=== PATIENT | female | born 1990 | race African-American/Black ===

== ENCOUNTER 2020-04-18 17:33 | Observation (INO) | payer SELFPAY ==
[2020-04-18] MEDS ORDERED: PREN-96 PO (18:01)
[2020-04-18 19:33] LABS: Urine Bacteria FEW /hpf (None Seen); Urine Blood TRACE /uL (Negative); Urine Mucus FEW (None Seen); Urine Specific Gravity 1.025 (1.001-1.035); Urine WBC 1 /hpf (0 - 5)
[2020-04-18 19:47] LABS: Alcohol, Urine < 3.0 mg/dL (0-10); Amphetamine Screen, Urine NEGATIVE (NEGATIVE); Barbiturate Scree,Urine NEGATIVE (NEGATIVE); Benzodiazephine Screen, Urine NEGATIVE (NEGATIVE); Cannabinoid Screen, Urine NEGATIVE (NEGATIVE); Cocaine Screen, Urine NEGATIVE (NEGATIVE); Opiate Scree,Urine NEGATIVE (NEGATIVE); Phencyclidine Screen, Urine NEGATIVE (NEGATIVE)
[2020-04-18 20:04] LABS: Basophils # (auto) 0 10 ^3/uL (0-0.2); Basophils % (auto) 0.3 % (0.0-2.0); Eosinophils # (auto) 0.1 10 ^3/uL (0-0.8); Eosinophils % (auto) 1.4 % (0.0-7.0); Hematocrit 28.4 % (36.0-46.0); Hemoglobin 9.3 g/dL (12.2-16.2); Lymphocytes # (auto) 1.5 10 ^3/uL (0.4-5.4); Lymphocytes % (auto) 17.4 % (10.0-50.0); Mean Corpuscular Hemoglobin 28.5 pg (28.0-32.0); Mean Corpuscular Hgb Conc. 32.9 g/dL (32.0-36.0); Mean Corpuscular Volume 86.7 fL (80.0-100.0); Monocytes # (auto) 0.8 10 ^3/uL (0-1.3); Monocytes % (auto) 9.8 % (0.0-12.0); Neutrophils # (auto) 6.1 10 ^3/uL (1.6-8.6); Neutrophils % (auto) 71.1 % (37.0-80.0); Nucleated Red Blood Cells % 0.1 %; Platelet Count (auto) 437 10^3/uL (140-450); Red Blood Cells 3.27 10^6/uL (4.0-5.20); Red Cell Distribution Width 13.9 % (11.8-14.3); White Blood Cell 8.6 10^3/uL (4.4-10.8)
[2020-04-18 20:19] LABS: INR 0.97 (0.9-1.15); Partial Thromboplastin Time 25.6 sec (23.64-32.05)
[2020-04-18 20:24] LABS: Albumin 2.3 g/dL (3.4-5.0); Calcium 8.7 mg/dL (8.5-10.1)
[2020-04-18 20:28] LABS: BUN/Creatinine Ratio 10.9; Bilirubin, Total 0.2 mg/dL (0.2-1.0); Total Protein 6.8 g/dL (6.4-8.2)
== END 2020-04-18 20:00 | disposition home or self-care (01) | DRG 833 ==
LOC: LDRP 17:33 → EDBD 17:33
PROVIDERS: ADMIT Specialist; ATTEND Specialist
DX: O62.9 Abnormality of forces of labor, unspecified (principal); Z3A.39 39 weeks gestation of pregnancy
CPT/HCPCS: 36415; 59025; 76805; 80053; 80307; 81001; 81002; 84112; 84550; 85025; 85610; 85730; 86592; 86703; 86762; 86850; 86900; 86901; 87081; 87340; G0378

== ENCOUNTER 2020-04-22 21:27 | Inpatient (IN) | payer SELFPAY ==
[~2020-04-22] VITALS: Ht 165.1 cm; Wt 113.4 kg
[~2020-04-22 21:27] MED LIST: PREN-96 PO
[2020-04-23 00:15] LABS: Basophils # (auto) 0 10 ^3/uL (0-0.2); Basophils % (auto) 0.2 % (0.0-2.0); Eosinophils # (auto) 0.1 10 ^3/uL (0-0.8); Eosinophils % (auto) 1.3 % (0.0-7.0); Hematocrit 32.1 % (36.0-46.0); Hemoglobin 10.5 g/dL (12.2-16.2); Lymphocytes # (auto) 2.1 10 ^3/uL (0.4-5.4); Lymphocytes % (auto) 20.4 % (10.0-50.0); Mean Corpuscular Hemoglobin 28.6 pg (28.0-32.0); Mean Corpuscular Hgb Conc. 32.9 g/dL (32.0-36.0); Monocytes # (auto) 0.9 10 ^3/uL (0-1.3); Monocytes % (auto) 8.9 % (0.0-12.0); Neutrophils % (auto) 69.2 % (37.0-80.0); Nucleated Red Blood Cells % 0.2 %; Platelet Count (auto) 531 10^3/uL (140-450); Red Blood Cells 3.69 10^6/uL (4.0-5.20); Red Cell Distribution Width 14.2 % (11.8-14.3); White Blood Cell 10.1 10^3/uL (4.4-10.8)
[2020-04-23 00:21] LABS: Urine Bacteria FEW /hpf (None Seen); Urine Blood 1+ /uL (Negative); Urine Mucus FEW (None Seen); Urine Specific Gravity 1.027 (1.001-1.035); Urine WBC 1 /hpf (0 - 5)
[2020-04-23 00:35] LABS: Albumin 2.7 g/dL (3.4-5.0); BUN/Creatinine Ratio 13.3; Calcium 8.9 mg/dL (8.5-10.1)
[2020-04-23 00:38] LABS: Bilirubin, Total 0.3 mg/dL (0.2-1.0); Total Protein 7.6 g/dL (6.4-8.2)
[2020-04-23 01:08] LABS: Uric Acid 3.4 mg/dL (2.6-6.0)
[2020-04-23] MEDS ORDERED: ACETAMINOPHEN 325 MG TAB PO ONE (01:15)
[2020-04-23] MEDS ORDERED: LACT. RINGERS/OXYTOCIN 20UNITS 1,000 ML IV SCH (02:43)
[2020-04-23] MEDS ORDERED: PHISODERM TOP SOLN 240ML BTL TOP PRN (02:45)
[2020-04-23] MEDS ORDERED: LIDOCAINE 2%HCL (LOCAL ANESTH.) INJ 20ML MDV ID ONE (02:45)
[2020-04-23] MEDS ORDERED: WITCH HAZEL-GLYCERIN PAD TOP PRN (02:45)
[2020-04-23] MEDS ORDERED: METHYLERGONOVINE MALEATE 0.2 MG/ML AMP IM PRN (02:45)
[2020-04-23] MEDS ORDERED: DERMOPLAST 60ML BOTTLE TOP PRN (02:45)
[2020-04-23] MEDS: LACTATED RINGER'S 1,000 ML IV SCH ×3 (03:06→06:06)
[2020-04-23] MEDS ORDERED: PROMETHAZINE HCL 25 MG/ML 1ML IM ONE (03:15)
[2020-04-23] MEDS ORDERED: BUTORPHANOL TARTRATE 2 MG/1 ML VIAL IV PRN (03:15)
[2020-04-23 03:28] LABS: Alcohol, Urine < 3.0 mg/dL (0-10); Amphetamine Screen, Urine NEGATIVE (NEGATIVE); Barbiturate Scree,Urine NEGATIVE (NEGATIVE); Benzodiazephine Screen, Urine NEGATIVE (NEGATIVE); Cannabinoid Screen, Urine NEGATIVE (NEGATIVE); Cocaine Screen, Urine NEGATIVE (NEGATIVE); Opiate Scree,Urine NEGATIVE (NEGATIVE); Phencyclidine Screen, Urine NEGATIVE (NEGATIVE)
[2020-04-23 04:06] LABS: INR 0.98 (0.9-1.15); Partial Thromboplastin Time 27.4 sec (23.64-32.05)
[2020-04-23] MEDS ORDERED: LACTATED RINGER'S 1,000 ML IV ONE (04:12)
[2020-04-23] MEDS ORDERED: NALOXONE HCL 0.4 MG/ML VIAL IV ONE (04:15)
[2020-04-23] MEDS ORDERED: fentaNYL 200mCg/100ml W ROPIVA 100 ML EPI SCH (04:15)
[2020-04-23] MEDS ORDERED: ePHEDrine SULFATE 50 MG/ML AMP IV ONE (04:15)
[2020-04-23] MEDS ORDERED: ACETAMINOPHEN 325 MG TAB PO PRN (09:30)
--- NOTE | 2020-04-23 11:46 | NUR ---
Ambulation: Patient OOB with standby assistance by RN. Patient ambulated to bathroom with steady gait. Patient able to void 800ml without difficulty. [facility] teaching provided with returned demonstration by patient. Clean gown provided and bed linen changed. Patient ambulated back to bed with steady gait and no distress noted.
--- NOTE | 2020-04-23 12:30 | NUR ---
Received SBAR from Caroline Wilburn.
[2020-04-23] MEDS: IBUPROFEN 600 MG TAB PO PRN ×2 (12:50→18:50)
--- NOTE | 2020-04-23 12:50 | NUR ---
Board updated. Updated on plan of care. Verbalized understanding. C/O pain of 05/17 in abdomen. See mar.
[2020-04-23 15:43] VITALS: BP 143/68
--- NOTE | 2020-04-23 16:27 | NUR ---
Assessment SS consult for no care PNC. Patient stated she lived in the [facility] of [place] and recently moved to [place] during the COVID -19 Pandemic and was unable to change her health plan to the [facility]. Patient informed me she was taking her parental in the beginning of her when her [employer] was active but stop taking them when she moved. Informed patient I will refer her to [place] will will assist with [employer]. Per patient Austni came in this morning and ask a few questions regarding income. Pt resides with her significant other Min and will have assistance with baby upon discharge. Pt has all supplies as well as car seat for baby and will be bottle and . Pt does not have health insurance and [facility] has been contact regarding patient. Pt has transportation home upon discharge.
[2020-04-23 19:00] VITALS: BP 121/63
--- NOTE | 2020-04-23 19:14 | NUR ---
mother requested bottle for . rn brought in bottle. mother attempted to feed baby bottle, baby wouldn't take it. mother attempted to latch. mother stated that went right back to sleep. rn initiated feeding with bottle. baby drinking now while mother is holding infant. mother of baby is really fatigued.
--- NOTE | 2020-04-23 21:06 | NUR ---
FATHER OF BABY AT BEDSIDE. STATING HE WILL BE SPENDING THE NIGHT AND WILL BE WAKING UP WITH INFANT.
[2020-04-23 23:00] VITALS: BP 123/71
--- NOTE | 2020-04-23 23:06 | NUR ---
MOTHER BONDING WITH . FEEDING WITH HELP OF RN. MOTHER CHANGED BABYS CLOTHING AND IS HOLDING BABY
[2020-04-24] MEDS: IBUPROFEN 600 MG TAB PO PRN ×2 (02:30→07:57)
[2020-04-24 03:00] VITALS: BP 121/71
[2020-04-24 06:30] VITALS: BP 128/66
--- NOTE | 2020-04-24 10:04 | NUR ---
Regarding social service consult for neglect of infant not bonding. When speaking to patient yesterday 04/23/2020 regarding no care. Patient was bonding with baby and at the time of discussing no care. TUNG Childs advised me patient has been bonding with baby since last night and has been feeding baby every 3 hours. Enter room this morning and patient was significant other Min was at bedside bonding with baby. Informed patient Lizeth Mensah has given bedside nurse information to provide her after discharge on how to obtain service for baby with a low cost while [place] assist with [employer]. Patient verbalize understanding. Informed TUNG Childs patient and baby father where both bonding with baby.
[2020-04-24 11:30] VITALS: BP 107/59
--- NOTE | 2020-04-24 11:35 | NUR ---
Discharge: Discharge instructions given as ordered. Pt encouraged to follow up with [facility] as instructed. All questions and concerns addressed. Patient verbalized understanding. Medication reconciliation completed and copy given to patient. All required/requested vaccines given and copies of vaccinations given to patient. Patient encouraged to prepare to depart unit.
--- NOTE | 2020-04-24 12:24 | NUR ---
Discharge: Patient taken to vehicle via wheelchair with all personal belongings, accompanied by staff and family member. No distress noted at time of departure, no adverse changes in status since initial assessment.
== END 2020-04-24 12:24 | disposition home or self-care (01) | DRG 807 ==
LOC: LDRP 21:27 → OBSVTOIN 04-23 02:38 → NUR 04-23 02:46 → LDRP 04-23 04:02
PROVIDERS: ADMIT Specialist; ATTEND Specialist
PROC: 10E0XZZ Delivery of Products of Conception, External Approach (ICD-10-PCS; principal; 2020-04-23)
PROC: 10907ZC Drainage of Amniotic Fluid, Therapeutic from Products of Conception, Via Natural or Artificial Opening (ICD-10-PCS; 2020-04-23)
PROC: 3E0R3BZ Introduction of Anesthetic Agent into Spinal Canal, Percutaneous Approach (ICD-10-PCS; 2020-04-23)
PROC: 00HU33Z Insertion of Infusion Device into Spinal Canal, Percutaneous Approach (ICD-10-PCS; 2020-04-23)
DX: O80 Encounter for full-term uncomplicated delivery (principal); Z37.0 Single live birth; Z3A.40 40 weeks gestation of pregnancy
CPT/HCPCS: 36415; 59025; 59409; 62282; 80053; 80307; 81001; 81002; 84112; 84550; 85025; 85379; 85384; 85610; 85730; 86592; 86850; 86900; 86901; 96365; 96366; 96372; 96374; G0378; J2590

== ENCOUNTER → 2020-04-30 | Emergency (ER) | payer SELFPAY ==
[~2020-04-30] VITALS: Ht 165.1 cm; Wt 113.4 kg
[~2020-04-30] MED LIST changes: +ACETAMINOPHEN 325 MG TAB PO ONE
[2020-04-30 22:02] LABS: Basophils # (auto) 0 10 ^3/uL (0-0.2); Basophils % (auto) 0.4 % (0.0-2.0); Eosinophils # (auto) 0.2 10 ^3/uL (0-0.8); Hemoglobin 10.4 g/dL (12.2-16.2); Monocytes # (auto) 0.5 10 ^3/uL (0-1.3)
[2020-04-30 22:04] LABS: Eosinophils % (auto) 3.4 % (0.0-7.0); Hematocrit 32.1 % (36.0-46.0); Lymphocytes # (auto) 2.4 10 ^3/uL (0.4-5.4); Lymphocytes % (auto) 34.2 % (10.0-50.0); Mean Corpuscular Hemoglobin 28.2 pg (28.0-32.0); Mean Corpuscular Hgb Conc. 32.3 g/dL (32.0-36.0); Mean Corpuscular Volume 87.2 fL (80.0-100.0); Neutrophils # (auto) 3.9 10 ^3/uL (1.6-8.6); Nucleated Red Blood Cells % 0.1 %; Platelet Count (auto) 551 10^3/uL (140-450); Red Blood Cells 3.69 10^6/uL (4.0-5.20); Red Cell Distribution Width 14.2 % (11.8-14.3); White Blood Cell 7.2 10^3/uL (4.4-10.8)
[2020-04-30 22:19] LABS: Albumin 2.7 g/dL (3.4-5.0); BUN/Creatinine Ratio 14.6; Potassium 3.6 mmol/L (3.5-5.1)
[2020-04-30 22:22] LABS: Bilirubin, Total 0.2 mg/dL (0.2-1.0); Total Protein 7.2 g/dL (6.4-8.2)
[2020-04-30 22:31] LABS: Urine Bacteria NONE SEEN /hpf (None Seen); Urine Blood 1+ /uL (Negative); Urine Hyaline Cast FEW /lpf (0 - 2); Urine Mucus FEW (None Seen); Urine Specific Gravity 1.036 (1.001-1.035); Urine WBC 2 /hpf (0 - 5)
[2020-04-30 22:46] LABS: Alcohol, Urine < 3.0 mg/dL (0-10); Amphetamine Screen, Urine NEGATIVE (NEGATIVE); Barbiturate Scree,Urine NEGATIVE (NEGATIVE); Benzodiazephine Screen, Urine NEGATIVE (NEGATIVE); Cannabinoid Screen, Urine NEGATIVE (NEGATIVE); Cocaine Screen, Urine NEGATIVE (NEGATIVE); Opiate Scree,Urine NEGATIVE (NEGATIVE); Phencyclidine Screen, Urine NEGATIVE (NEGATIVE)
[2020-04-30 23:46] VITALS: BP 143/72
== END | disposition home or self-care (01) ==
LOC: ER 21:01
DX: O90.89 Other complications of the puerperium, not elsewhere classified (principal); R10.2 Pelvic and perineal pain; D64.9 Anemia, unspecified
CPT/HCPCS: 36415; 76830; 76856; 80053; 80307; 81001; 85025

== ENCOUNTER 2020-07-16 16:42 | Emergency (ER) | payer SELFPAY ==
[~2020-07-16] VITALS: Ht 165.1 cm; Wt 108.9 kg
[~2020-07-16 16:42] MED LIST changes: -ACETAMINOPHEN 325 MG TAB PO ONE
[2020-07-16 18:30] VITALS: BP 126/59
[2020-07-16] MEDS ORDERED: cefTRIAXone SOD 1,000 MG VL ONE (18:37)
[2020-07-16] MEDS ORDERED: cefTRIAXone SOD 1,000 MG VL IM ONE (18:45)
== END 2020-07-16 18:51 | disposition home or self-care (01) ==
LOC: ER 16:42
DX: L03.111 Cellulitis of right axilla (principal); L25.9 Unspecified contact dermatitis, unspecified cause
CPT/HCPCS: 96372; 99283; J0696

== ENCOUNTER 2020-11-28 17:12 | Emergency (ER) | payer SELFPAY ==
[~2020-11-28] VITALS: Ht 165.1 cm; Wt 99.8 kg
[2020-11-28 17:14] VITALS: BP 156/82
== END 2020-11-28 20:05 | disposition left against medical advice (07) ==
LOC: ER 17:12
DX: B00.1 Herpesviral vesicular dermatitis (principal); L03.211 Cellulitis of face

== ENCOUNTER 2021-07-01 11:25 | Emergency (ER) | payer MEDICAID, OTHER ==
[~2021-07-01] VITALS: Ht 165.1 cm; Wt 107.0 kg
[2021-07-01 11:25] VITALS: BP 132/75
== END 2021-07-01 17:36 | disposition home or self-care (01) ==
LOC: ER 11:25
DX: S46.912A Strain of unspecified muscle, fascia and tendon at shoulder and upper arm level, left arm, initial encounter (principal); W18.49XA Other slipping, tripping and stumbling without falling, initial encounter; Y93.01 Activity, walking, marching and hiking; Y92.89 Other specified places as the place of occurrence of the external cause; Y99.8 Other external cause status
CPT/HCPCS: 73030; 81025